=== PATIENT | male | born 1960 | race Caucasian/White ===

== ENCOUNTER 2023-10-07 10:17 | Outpatient (CLI) | payer BC, SELFPAY ==
--- OUTSIDE RECORDS SUMMARY | 2023-10-09 07:21 | XMS_ITS | Clinical Summary ---
Author Name Unknown Organization [id number] Address [place], [place] [address] Care Team Providers Care [place] Name Role Phone [facility] Primary Care Provider Unavail able Allergies No known active allergies Medications No known medications Active Problems Problem Noted Date Diagnosed Date Adenomatous colon polyp 09/23/2018 Overview: Colonoscopy 09/2018 polyp, benign ulcer in the cecum, repeat in 5 years Immunizations Name Administration Dates Next Due DT (Age < 7 years) 06/03/1999,10/07/1991 MMR 07/31/2005 Family History Medical History Relation Name Comments Ulcers Father Diabetes type II Mother Diabetes type II Sister Relation Name Status Comments Father (Age 88) Mother (Age 92) Natural ca use Sister Alive Social History Tobacco Use Types Packs/Day Years Used Date Smoking Tobacco: Former Smokeless Tobacco: Never Tobacco Cessation:Counseling Given: Yes Alcohol Use Standard Drinks/Week Comments Yes 2 (1 standard drink = 0.6 oz pur e alcohol) daily Sex and Gender Information Value Date Recorded Sex Assigned at Not on file Gender Identity Not on file Sexual Orientation Not on file Obstetrics History Last Filed Vital Signs Vital Sign Reading Time Taken Comments Blood Pressure 149/92 12/09/2018 3:20 PM CDT Pulse 81 12/09/2018 3:20 PM CDT Temperature 36.8 ??C (98.3 ??F) 12/09/2018 2:44 PM CD T Respiratory Rate 18 12/09/2018 3:20 PM CDT Oxygen Saturation 98% 12/09/2018 3:20 PM CDT Inhaled Oxygen Concentration - - Weight 95.3 kg (210 lb) 12/09/2018 2:44 PM CDT Height 182.9 cm (6') 12/09/2018 2:44 PM CDT Body Mass Index 28.48 12/09/2018 2:44 PM CDT Plan of Treatment Health Maintenance Due Date Last Done Comments Tdap 1972 HIV for age 15-65 1976 Hepatitis C screening for ag e 18-79 1979 Tetanus booster 1981 Lipids for age 45-75 07/31/2010 07/31/2005, 07/31/2005 Zoster (shingles) series for age 50+ (1 of 2) 2011 BMI (ht and wt on same day) for age 18+ 05/13/2018 05/13/2017, 06/22/2015 Depression screening for age 12+ 05/13/2018 05/13/2017, 06/22/2015 COVID-19 vaccine series (2022- season) 2023 Colonoscopy through age 75 09/23/202309/22, 09/22/2018 Influenza for age 50-64 02/02/2024 Pneumococcal series for age 6-64 Aged Out No longer eligible b ased on patient's age to complete this topic Procedures Procedure Name Priority Date/Time Associated Diagnosis Comments SCAN-COLONOSCOPY 09/22/2018 12:0 0 AM CDT HDL CHOLESTEROL Timed 07/31/2005 5:42 PM BIBLE READER from Last 3 Months or Most Recently Relevant to Health Maintenance Results * SCAN-COLONOSCOPY (09/22/2018 12:00 AM CDT) Scanner OTHER * HDL CHOLESTEROL (07/31/2005 5:42 PM BIBLE READER) HDL CHOLESTEROL 66 >40 mg/dL ABBO TT [facility] 07/31/2005 5:42 PM BIBLE READER 08/01/2005 1:51 PM BIBLE READER Maury Sosa MD CHEMISTRY [facility] INTERNAL ZIP [address] [address] from Last 3 Months or Most Recently Relevant to Health Maintenance Care Teams [place] Relationship Specialty Start Date End Date Sofia Onofre PCP - General 12/09/18
== END 2023-10-07 10:18 | disposition home or self-care (01) ==
LOC: NFLDREF 10-09 07:19
PROVIDERS: PCP Family Medicine; Referring Provider Family Medicine; Visit Provider Family Medicine
DX: Z13.220 Encounter for screening for lipoid disorders (principal); Z13.1 Encounter for screening for diabetes mellitus; Z12.5 Encounter for screening for malignant neoplasm of prostate
CPT/HCPCS: 80061; 82947; G0103

== ENCOUNTER 2023-10-29 08:00 | Outpatient (CLI) | payer BC, SELFPAY ==
--- OUTSIDE RECORDS SUMMARY | 2023-10-29 08:03 | XMS_ITS | Clinical Summary ---
Author Organization [employer] [facility] Address [place], [place] [address] Care Team Providers Care Overnight Caregiver Name Role Phone [facility] Primary Care Provider Unavail able Allergies No [...] CDT HDL CHOLESTEROL Timed 07/31/2005 5:42 PM LABORATORY CLERK from Last 3 Months or Most Recently Relevant to Health Maintenance Results * SCAN-COLONOSCOPY (09/22/2018 12:00 AM CDT) Scanner OTHER * HDL CHOLESTEROL (07/31/2005 5:42 PM LABORATORY CLERK) HDL CHOLESTEROL 66 >40 mg/dL ABBO TT [facility] 07/31/2005 5:42 PM LABORATORY CLERK 08/01/2005 1:51 PM LABORATORY CLERK Maury Sosa MD CHEMISTRY [facility] INTERNAL ZIP [phone] [address] from Last 3 Months or Most Recently Relevant to Health Maintenance Care Teams Overnight Caregiver Relationship Specialty Start Date End Date Sofia Onofre PCP - General 12/09/18
--- NOTE | 2023-10-29 09:43 | W.ANESCHARGE ---
Anesthesia Charges Start Date/Time Anesthesia Start Date: 10/29/23 Anesthesia Start Time: 09:10 Stop Date/Time Anesthesia Stop Date: 10/29/23 Anesthesia Stop Time: 09:44
--- NOTE | 2023-10-29 09:46 | W.ANESCHARGE ---
Anesthesia Charges Start Date/Time Anesthesia Start Date: 10/29/23 Anesthesia Start Time: 09:10 Stop Date/Time Anesthesia Stop Date: 10/29/23 Anesthesia Stop Time: 09:44
== END 2023-10-29 08:01 | disposition home or self-care (01) ==
LOC: OP CLINIC 08:01
PROVIDERS: PCP Family Medicine; Visit Provider Surgery
DX: Z12.11 Encounter for screening for malignant neoplasm of colon (principal); K63.5 Polyp of colon; Z86.010 Personal history of colon polyps
CPT/HCPCS: 00811; 45385; 88305; J2704

== ENCOUNTER 2024-11-05 11:07 | Outpatient (CLI) | payer BC, SELFPAY ==
--- NOTE | 2024-11-05 12:45 | P.ANES_ITS ---
Anesthesia Charges Start Date/Time Anesthesia Start Date: 11/05/24 Anesthesia Start Time: 12:00 Stop Date/Time Anesthesia Stop Date: 11/05/24 Anesthesia Stop Time: 12:44 Coding CPT Codes CPT Codes: MARIA ANTONIA LWR INTST NDSC NOS - [id number] ([id number]) P2 - PATIENT W/MILD SYST DISEASE, QK - ACADEMIC SERVICES COORDINATOR 2-4 CNCRNT ANES PROC, QX - EQUINE PHARMACOLOGY TECHNICIAN SVC W/ MD MED DIRECTION
--- NOTE | 2024-11-05 12:45 | W.ANESCHARGE ---
Anesthesia Charges Start Date/Time Anesthesia Start Date: 11/05/24 Anesthesia Start Time: 12:00 Stop Date/Time Anesthesia Stop Date: 11/05/24 Anesthesia Stop Time: 12:44 Coding CPT Codes CPT Codes: MARIA ANTONIA LWR INTST NDSC NOS - [id number] ([id number]) P2 - PATIENT W/MILD SYST DISEASE, QK - OFFICE SPEC 2-4 CNCRNT ANES PROC, QX - ACID BLOWER SVC W/ MD MED DIRECTION
--- NOTE | 2024-11-05 13:00 | P.ANES_ITS ---
Anesthesia Charges Start Date/Time Anesthesia Start Date: 11/05/24 Anesthesia Start Time: 12:00 Stop Date/Time Anesthesia Stop Date: 11/05/24 Anesthesia Stop Time: 12:44 Coding CPT Codes CPT Codes: MARIA ANTONIA LWR INTST NDSC NOS - [id number] ([id number]) P2 - PATIENT W/MILD SYST DISEASE, QK - ORNAMENTAL METAL ERECTOR 2-4 CNCRNT ANES PROC, QX - OUTSIDE SALES CONSULTANT SVC W/ MD MED DIRECTION
--- NOTE | 2024-11-05 13:00 | W.ANESCHARGE ---
Anesthesia Charges Start Date/Time Anesthesia Start Date: 11/05/24 Anesthesia Start Time: 12:00 Stop Date/Time Anesthesia Stop Date: 11/05/24 Anesthesia Stop Time: 12:44 Coding CPT Codes CPT Codes: MARIA ANTONIA LWR INTST NDSC NOS - [id number] ([id number]) P2 - PATIENT W/MILD SYST DISEASE, QK - FARM SPECIALIST 2-4 CNCRNT ANES PROC, QX - ASSEMBLY ASSOCIATE SVC W/ MD MED DIRECTION
== END 2024-11-05 11:08 | disposition home or self-care (01) ==
LOC: OP CLINIC 11:07
PROVIDERS: PCP Family Medicine; Visit Provider Surgery
DX: Z12.11 Encounter for screening for malignant neoplasm of colon (principal); Z86.0109 Personal history of other colon polyps; D12.0 Benign neoplasm of cecum; D12.2 Benign neoplasm of ascending colon; D12.3 Benign neoplasm of transverse colon; D12.4 Benign neoplasm of descending colon
CPT/HCPCS: 00811; 00812; 45385; J2704